=== PATIENT | male | born 1945 | race Caucasian/White ===

== ENCOUNTER 2022-12-15 04:34 | Outpatient (CLI) | payer MEDICARE | END 2022-12-15 04:35 | disposition critical access hospital (66) | LOC: EMS 04:34 | DX: S49.92XA Unspecified injury of left shoulder and upper arm, initial encounter (principal); W01.0XXA Fall on same level from slipping, tripping and stumbling without subsequent striking against object, initial encounter; Y93.01 Activity, walking, marching and hiking; Y92.59 Other trade areas as the place of occurrence of the external cause | CPT/HCPCS: A0425; A0427 ==

== ENCOUNTER 2022-12-15 05:13 | Emergency (ER) | payer MEDICAID, MEDICARE, OTHER ==
[2022-12-15] MEDS ORDERED: LORazepam 1 MG TABLET PO STA (05:29)
[2022-12-15] MEDS ORDERED: oxyCODONE 5 MG TABLET PO STA ×2 (05:30→08:15)
[2022-12-15] MEDS ORDERED: BACITRACIN ZINC OINT 1 PACKET TOP STA (05:31)
[2022-12-15] MEDS ORDERED: LORazepam 2 MG/ML VIAL IVP STA (05:35)
[2022-12-15] MEDS ORDERED: fentaNYL 100 MCG/2 ML VIAL IVP STA ×2 (05:36→07:18)
--- NOTE | 2022-12-15 07:13 | ED Physician Documentation ---
History of Present Illness - Stated complaint Stated Complaint: GLF, LEFT SHOULDER DEFORMITY - Chief complaint Chief Complaint: Trauma Ext - History obtained from History obtained from: Patient - Additonal information Additional information: 77yM with PMH CVA with L sided paralysis presents s/p fall on L shoulder with deformity tonight. no other injuries. denies pain except with movement of the shoulder. PD PAST MEDICAL HISTORY - Allergies Allergies/Adverse Reactions: Allergies Allergy/AdvReac Type Severity Reaction Status Date / Time Penicillins AdvReac Unknown Verified 12/15/22 05:31 PD ED PE NORMAL - Vitals Vital signs reviewed: Yes - General General: Alert and oriented X 3, No acute distress, Well developed/nourished - HEENT HEENT: Atraumatic, PERRL, EOMI - Neck Neck: Supple, no meningeal sign - Cardiac Cardiac: RRR - Respiratory Respiratory: No respiratory distress, Clear bilaterally - Extremities Extremities: Other (L shoulder deformity and tender with ROM. 2+ LUE radial pulse. diminished sensation and mvoement at baseline 2/2 cva. baseline contracture of hand.) Results - Vitals Vitals: Vital Signs - 24 hr 12/15/22 12/15/22 05:20 05:22 Temperature 36.8 C Heart Rate 81 75 Respiratory 14 16 Rate Blood Pressure 139/76 H 137/71 H O2 Saturation 95 95 Oxygen O2 Source Room air PD Medical Decision Making - ED course ED course: XR shows L humeral head fracture. d/w transfer center who convey message from orthopedist Sukumar Tan , who recommends outpatient follow up. [place] sling and swath placed. Patient neurovascularly intact. Plan to f/u with their personal orthopedist associated with [facility]. Return precautions given. Departure - Departure Disposition: 01 Home, Self Care Clinical Impression: Proximal humerus fracture Condition: Stable Instructions: ED Fx Upper Ext Comments: You were seen in the ED for L proximal humerus fracture (broken shoulder). It is a fracture of the humeral neck and may need surgery. Please wear your sling/brace until you follow up with orthopedics this week. Return to the ED for new or worsening symptoms or other concerns.
--- NOTE | 2022-12-15 07:57 | XRAY Report ---
PROCEDURE: Shoulder 3 View LT INDICATIONS: shoulder deformity s/p fall TECHNIQUE: 2 views of the shoulder were acquired. COMPARISON: None. FINDINGS: Bones: Comminuted, displaced fracture of the surgical neck of the left humerus, with 2 dominant frac ture fragments. Soft tissues: No suspicious soft tissue calcifications. IMPRESSION: Neer 2 part fracture of the left humerus. Findings are concordant with preliminary interpretation provided by [facility]. Reviewed by: Remi Townsend on 12/15/2022 7:56 AM PDT Approved by: Remi Townsend on 12/15/2022 7:56 AM PDT Station ID: [id number]
[2022-12-15] MEDS ORDERED: NAPROXEN 250 MG TABLET PO STA (08:15)
[2022-12-15] MEDS ORDERED: ACETAMINOPHEN 325 MG TABLET PO STA (08:15)
[2022-12-15 08:33] VITALS: BP 146/79
== END 2022-12-15 08:31 | disposition home or self-care (01) ==
LOC: ED 05:13
DX: S42.202A Unspecified fracture of upper end of left humerus, initial encounter for closed fracture (principal); W19.XXXA Unspecified fall, initial encounter; I69.354 Hemiplegia and hemiparesis following cerebral infarction affecting left non-dominant side
CPT/HCPCS: 73030; 96374; 96376; 99283; A9270; J2060